=== PATIENT | female | born 2005 | race Two or more races ===

== ENCOUNTER 2024-11-14 07:40 | Inpatient (IN) | payer MEDICAID, SELFPAY ==
[2024-11-14] VITALS (125 sets, daily range): BP systolic 88–172; BP diastolic 50–97; PULSE 58–124; RESP 16–98; TEMP 36.7–37.3; O2SAT 97–100; BMI 22.1
[2024-11-14 08:17] LABS: ROM Kit Lot # 57809118; ROM Swab Mixed By: SAUCT; Rupture of Fetal Membranes Negative (Negative); Swb Mxed in Solvent 1 min? Yes
[2024-11-14 09:24] LABS: Basophils % (Auto) 0 % (0-2.5); Eosinophils # (Auto) 0.1 Thou/mm3 (0.0-0.5); Eosinophils % (Auto) 1 % (0-10); Hematocrit 36.9 % (36.0-46.0); Immature Granulocytes % (Auto) 1 % (0-0); Immature Granulocytes Auto 0.13 Thou/mm3 (0.00-0.00); Lymphocytes # (Auto) 3.1 Thou/mm3 (1.0-4.8); Lymphocytes % (Auto) 22 % (10-50); Mean Corpuscular HGB Conc 35.2 g/dl (31.0-37.0); Mean Corpuscular Hemoglobin 31.5 pg (25.0-35.0); Mean Corpuscular Volume 89 fL (80-100); Monocytes # (Auto) 0.8 Thou/mm3 (0.0-0.8); Monocytes % (Auto) 6 % (0-12); Neutrophils # (Auto) 9.8 Thou/mm3 (1.8-7.7); Neutrophils % (Auto) 70 % (37-80); Nucleated Red Blood Cell % 0 /100 WBC (0); Platelet Count 258 Thou/mm3 (140-440); RDW Standard Deviation 42.5 fL (36.4-46.3); Red Blood Count 4.13 Miln/mm3 (4.00-5.20); White Blood Count 13.9 Thou/mm3 (4.5-11.0)
--- NOTE | 2024-11-14 09:26 | PD.LDHP ---
Documentation for date of: 11/14/24 OB Labor/Induct. HPI History of Present Illness Chief complaint: Painful uterine contractions, possible leaking fluid : 1 Para: 0 History of sections: No History of : No ARMANDO: 11/28/24 Gestational Age (weeks): 38 Gestational Age (days): 0 History of present illness: Patient is a 19-year-old G1, P0 at 38-0/7 weeks who presented to triage this morning reporting possible leaking fluid. She states she was at [facility] yesterday and had a negative AmniSure. Patient's AmniSure was negative today. Her cervical exam on presentation was 3 cm dilated. She was observed in triage for an hour and progressed to 5 cm dilatation. She was admitted in active labor. Unknown group B strep status. We will start antibiotics. History of Present Adequate Care: Yes Obstetrical complications: none Medical complications: none Labs Labs: Unknown: Group Beta Strep Narrative: Unknown group B strep status. We will start antibiotics. Review of Systems Review of Systems Systems Reviewed: All systems reviewed, normal except as documented Narrative Review of Systems: Patient reports regular painful contractions every 3 minutes. She reports leaking fluid. She denies vaginal bleeding. She reports good movement. Past Medical History Surgical History SURGICAL: Negative Section Meds Home Medications and Allergies Home Medications ?Medication ?Instructions ?Recorded ?Confirmed ?Type prenat.vits,yojana,[id number] 1 tab PO QDAY 07/19/24 07/19/24 History vit no.95-ferrous tab PO .1qid 11/14/24 History fumarate 28 mg-folic acid 800 mcg tablet () Allergies Allergy/AdvReac Type Severity Reaction Status Date / Time No Known Allergies Allergy Verified 11/14/24 08:24 OB Exam Physical Exam Vital signs: Temp Pulse Resp BP Pulse Ox 98.8 F 91 18 122/85 H 100 11/14/24 08:08 11/14/24 08:08 11/14/24 08:08 11/14/24 08:08 11/14/24 09:09 Routine Abdominal Exam Abdominal: Present soft Detailed Labor and Delivery Exam Dilation (cm): 5 Effacement (%): 90 Cervix position: mid station: -1 Consistency: soft Presentation: Vertex Membranes: intact Baseline heart rate: 140 monitor accelerations: 15x15 monitor decelerations: None nursing home variability: Moderate (11-25) Contraction frequency (min): 2-3 min Tachysystole: No Contraction intensity: Moderate OB Results Labs 11/14/24 09:10 OB Assessment & Plan Assessment and Plan (1) Active labor at term: Status: Acute Additional Plan Induction method: none Plan: anticipate NVD and GBS prophylaxis tx Additional Plan Comment: Patient appears to be an adequate labor. Will augment labor if her contractions space. Will start ampicillin for group B strep prophylaxis.
[2024-11-14] MEDS: RINGERS LACTATED 1000 ML 1,000 ML 125 ML IV ×3 (09:56→11:40)
[2024-11-14 10:03] LABS: Syphilis Nonreactive (Nonreactive)
[2024-11-14] MEDS: fentaNYL CIT INJ 50 mCg/ML AMP 2ML 100 MCG IV (10:29)
[2024-11-14] MEDS: Ampicillin Inj 2,000 MG in SODIUM CHLORIDE 0.9% (P) 100 ML 200 MG IV (10:44)
[2024-11-14] MEDS: Ampicillin Inj 1,000 MG in SODIUM CHLORIDE 0.9% (P) 50 ML 50 MG IV (14:42)
[2024-11-14] MEDS: OXYTOCIN in NS 20 units 20 UNIT/1,000 ML BAG 125 UNIT IV (15:21)
[2024-11-14] MEDS: BENZO/LANO/ALOE (Dermoplast) 60 GM CAN 1 SPRAY TOP (16:52)
[2024-11-14 17:18] LABS: Amphetamine/Metham Scrn,Ur OB Negative (Negative); Benzoylecgonine Screen, Ur OB Negative (Negative); Opiate Screen,Urine OB Negative (Negative); THC Screen,Urine OB Negative (Negative)
--- NOTE | 2024-11-14 17:47 | ESHP_ITS ---
Documentation for date of: 11/14/24 OB Labor/Induct. HPI History of Present Illness Chief complaint: Labor, 38 weeks : 1 Para: 0 History of sections: No History of : No ARMANDO: 11/28/24 Gestational Age (weeks): 38 Gestational Age (days): 0 History of present illness: Patient is a 19-year-old G1, P0 at 38-0/7 weeks who presented to triage this morning reporting possible leaking fluid. She states she was at [facility] yesterday and had a negative AmniSure. Patient's AmniSure was negative today. Her cervical exam on presentation was 3 cm dilated. She was observed in triage for an hour and progressed to 5 cm dilatation. She was admitted in active labor. Unknown group B strep status. We will start antibiotics. History of Present Dating criteria: LMP confirmed by 2nd trimester US Adequate Care: Yes Obstetrical complications: none Medical complications: none Labs Labs: Negative: Hepatitis B, HIV, Chlamydia and Gonorrhea and Unknown: Group Beta Strep Review of Systems Review of Systems Systems Reviewed: All systems reviewed, normal except as documented Narrative Review of Systems: Patient reported regular painful contraction contractions. She denied heavy vaginal bleeding she reported possible leaking fluid on admission however her AmniSure test was negative. Past Medical History Surgical History SURGICAL: Negative Section Meds Home Medications and Allergies Home Medications ?Medication ?Instructions ?Recorded ?Confirmed ?Type prenat.vits,yojana,ryx-qcqp-xkjkj 1 tab PO QDAY 07/19/24 11/14/24 History Allergies Allergy/AdvReac Type Severity Reaction Status Date / Time No Known Allergies Allergy Verified 11/14/24 08:24 OB Exam Physical Exam Vital signs: Temp Pulse Resp BP Pulse Ox 98.4 F 78 16 130/67 97 11/14/24 14:00 11/14/24 17:14 11/14/24 14:00 11/14/24 17:14 11/14/24 15:12 Routine Abdominal Exam Abdominal: Present soft Detailed Labor and Delivery Exam Dilation (cm): 5 Effacement (%): 90 Cervix position: mid station: -1 Consistency: medium Presentation: Vertex Membranes: intact monitor accelerations: 15x15 monitor decelerations: None director long term care variability: Moderate (11-25) Contraction intensity: Moderate OB Results Labs 11/14/24 09:10 Labs: Short CBC 11/14/24 Range/Units 09:10 WBC 13.9 H (4.5-11.0) Thou/mm3 Hgb 13.0 (12.0-16.0) g/dL Hct 36.9 (36.0-46.0) % Plt Count 258 (140-440) Thou/mm3 OB Assessment & Plan Assessment and Plan (1) Active labor at term: Status: Acute Additional Plan Plan: anticipate NVD and GBS prophylaxis tx Additional Plan Comment: Admit patient. Ampicillin for group B strep unknown. Okay for epidural. Anticipate .
--- NOTE | 2024-11-14 17:53 | PD.LDDS ---
DS: Providers Provider Date of admission: 11/14/24 09:02 Primary care physician: Physician No Primary/Family Admitting Provider: Clara Galan MD Attending Provider on Admission: Clara Galan MD Consults: 11/14/24 16:15 Referral Routine Comment: Attending Provider on DC: Clara Galan MD Discharging Provider: Clara Galan MD Summary/Hosp Course Brief History: Patient is a 19-year-old G1, P0 at 38-0/7 weeks who presented to triage this morning reporting possible leaking fluid. She states she was at [facility] yesterday and had a negative AmniSure. Patient's AmniSure was negative today. Her cervical exam on presentation was 3 cm dilated. She was observed in triage for an hour and progressed to 5 cm dilatation. She was admitted in active labor. Unknown group B strep status. We will start antibiotics. Time Spent with Patient Time attestation: Total time spent providing and/or coordinating discharge services: Exam Vital Signs Temp Pulse Resp BP Pulse Ox 98.4 F 78 16 130/67 97 11/14/24 14:00 11/14/24 17:14 11/14/24 14:00 11/14/24 17:14 11/14/24 15:12 Discharge Plan Prescriptions/Referrals Prescriptions/Med Rec: No Action Vitamin Tablet 1 tab PO QDAY Referrals: No Primary/Family,Physician [Primary Care Provider] - Patient/Caregiver Discharge Instructions Print Language: Panamanian Planned Discharge Date 11/14/24
--- NOTE | 2024-11-14 17:54 | OBDSUM_ITS ---
Data ([facility]) Data Hx Section: No : 1 Term: 0 : 0 : 0 Delivery Data ([facility]) Labor Data Stimulated/Augmented: No Induction: No Rupture Type: SROM Amniotic Fluid: Clear Delivery Data EDC: 11/28/24 EDC calculated by:: LMP/early US confirmation Delivery Date: 11/14/24 Delivery Time: 15:12 Gestational age (weeks): 38 Gestational age (days): 0 Delivered by: Clara Galan Bisque Ware Dipper at delivery: Yes (Dr Calhoun) Support person(s) at delivery: Mother of pt, FOB Delivery Method Delivery: Vaginal Delivery Type: Spontaneous Presentation: Vertex Position: OA Anesthesia Type Primary Anesthesia: Epidural Secondary Anesthesia: None Placenta Placenta Delivery: Spontaneous Placenta Cultures Obtained: No Placenta Sent for Examination: No Episiotomy Episiotomy: None Lacerations #2: Perineal: 1st degree Periurethral: First degree Perineal repair Sutures used for repair: 3.0 Chromic and other (2-0 chromic) EBL Estimated blood loss (ml): 150 Umbilical Cord Placenta/Cord Complication: Velamentous Insertion and Other (Short cord) Umbilical Vessels: 3 Nuchal Cord: None (Short cord) Body Cord: None Additional Procedures Patient is a 19-year-old G1, P0 who presented 5 cm in active labor. She went on to progress to complete and pushed 17 minutes delivering a liveborn female at 1512. Findings: liveborn female in the DEANNA presentation with no nuchal cord, no meconium. The baby did have a short cord .Apgars were 9 and 9 weight was 2870 g or 6 pounds 5 ounces. The placenta was complete spontaneous grossly normal delivering approximately 3 minutes after the baby. The patient sustained a left first-degree periurethral laceration and a first-degree perineal laceration in a U-shape repaired in a standard fashion using 2-0 and 4-0 chromic. Complications were none. Condition both mom and infant were in stable condition in the delivery room. Complications Complications: None [place] Data ([facility]) [place] Data Infant Gender: Female Infant Weight Grams: 2870
[2024-11-14] MEDS: HYDROcodone/APAP 5/325 TABLET 1 TAB PO (19:49)
[2024-11-14 22:54] LABS: Basophils % (Auto) 0 % (0-2.5); Eosinophils % (Auto) 0 % (0-10); Hemoglobin 10.5 g/dL (12.0-16.0); Immature Granulocytes % (Auto) 1 % (0-0); Immature Granulocytes Auto 0.09 Thou/mm3 (0.00-0.00); Lymphocytes # (Auto) 1.9 Thou/mm3 (1.0-4.8); Lymphocytes % (Auto) 10 % (10-50); Mean Corpuscular Hemoglobin 31.3 pg (25.0-35.0); Mean Corpuscular Volume 90 fL (80-100); Monocytes % (Auto) 5 % (0-12); Neutrophils # (Auto) 16.2 Thou/mm3 (1.8-7.7); Neutrophils % (Auto) 84 % (37-80); Nucleated Red Blood Cell % 0 /100 WBC (0); Platelet Count 208 Thou/mm3 (140-440); RDW Standard Deviation 42.9 fL (36.4-46.3); Red Blood Count 3.35 Miln/mm3 (4.00-5.20); White Blood Count 19.2 Thou/mm3 (4.5-11.0)
[2024-11-15] MEDS: IBUPROFEN TAB 400 MG TABLET 800 MG PO (08:31)
--- NOTE | 2024-11-15 08:46 | PD.LDPPPRG ---
Subjective Subjective Interval history: Patient is a 19-year-old -0-0-1 status post vaginal delivery 11/14/2024. Patient is doing quite well she is resting comfortably and breast-feeding. She is to reports mild cramping pain relieved by ibuprofen. She denies any heavy vaginal bleeding she reports some perineal pain. Exam Vital Signs Temp Pulse Resp BP Pulse Ox O2 Del Method 98.8 F 82 16 109/67 98 Room Air 11/14/24 23:50 11/14/24 23:50 11/14/24 23:50 11/14/24 23:50 11/14/24 23:50 11/14/24 23:50 Constitutional Constitutional: no acute distress Comments: Patient is alert and oriented. Resting comfortably in bed. Breast-feeding well. Routine Abdominal Exam Abdominal: Present soft Comments: Fundus firm nontender. Routine Extremities Exam Comments: No significant pedal edema Objective Labs 11/14/24 22:37 Labs: Laboratory Results - last 24 hr 11/14/24 11/14/24 11/14/24 09:10 12:00 22:37 WBC 13.9 H 19.2 H D RBC 4.13 3.35 L Hgb 13.0 10.5 L D Hct 36.9 30.0 L MCV 89 90 MCH 31.5 31.3 MCHC 35.2 35.0 RDW Std Deviation 42.5 42.9 Plt Count 258 208 D Neut % (Auto) 70 84 H Lymph % (Auto) 22 10 [place] % (Auto) 6 5 Eos % (Auto) 1 0 Baso % (Auto) 0 0 Neut # (Auto) 9.8 H 16.2 H Lymph # (Auto) 3.1 1.9 [place] # (Auto) 0.8 1.0 H Eos # (Auto) 0.1 0.0 Baso # (Auto) 0.0 0.0 Immature Gran # (Auto) 0.13 H 0.09 H Absolute Nucleated RBC 0.00 0.00 Immature Gran % 1 H 1 H Nucleated RBC % 0 0 Urine Opiates Screen Negative U Amphetamin/Meth Scrn Negative U Cocaine Metab Screen Negative U Marijuana (THC) Screen Negative Syphilis Serology Nonreactive Blood Type B Positive Antibody Screen NEGATIVE Blood Bank Wristband ID Yes Assessment & Plan Problem List (1) Active labor at term: Status: Acute Assessment and plan: day #1 status post normal spontaneous vaginal delivery. Patient is doing very well. Continue routine care. Plan Comment Plan Comment: Probable discharge later this afternoon. Time Spent With Patient Time: Total time spent is greater than 50% in coordination of care (as documented) at patient's floor/unit and/or counseling patient:
[2024-11-15 09:08] VITALS: BP 110/73; PULSE 73; RESP 16; TEMP 36.7; O2SAT 98
--- NOTE | 2024-11-15 10:13 | PC.SS ---
Update: SS conducted bedside contact with the patient to address nursing referral indicating that patient was late to care at 16 weeks.? SS introduced self and role.? FOB at bedside, Nate. ?SS asked for permission to speak in front of FOB. Patient was agreeable.? FOB involved. Patient resides at home with her mother. D/c address:? [address], [place]. Patient confirmed late to care due to residing in [place], [place] at the time. Patient then moved to this location and had difficulty scheduling new appointment with [facility]. [facility] provided OB services.? This is patient?s first baby. ?Patient delivered, baby girl, Amy, natural. Patient states she plans on combo feeding, breast and bottle. Patient confirmed no history of drug/alcohol, DV or mental health history.? Patient is aligned with WIC and FS.? No TANF. Patient has access to a car seat.? Patient has access to appropriate supplies and equipment. ?No further intervention required at this time. Cream Buyer will be available to address any further concerns. SS updated bedside nurse.
--- NOTE | 2024-11-15 12:42 | ESDS_ITS ---
DS: Providers Provider Date of admission: 11/14/24 09:02 Primary care physician: Physician No Primary/Family Admitting Provider: Clara Galan MD Attending Provider on Admission: Clara Galan MD Consults: 11/14/24 16:15 Referral Routine Comment: Attending Provider on DC: Clara Galan MD Discharging Provider: Clara Galan MD Anticipated date of discharge: 11/15/24 DS: Diagnosis Discharge Diagnosis (1) Active labor at term: Status: Acute (2) Term delivered: Status: Acute Problem List Completed Was Problem List Reviewed/Reconciled?: Yes Summary/Hosp Course Brief History: Patient is a 19-year-old G1, P0 at 38-0/7 weeks who presented to triage this morning reporting possible leaking fluid. She states she was at [facility] yesterday and had a negative AmniSure. Patient's AmniSure was negative today. Her cervical exam on presentation was 3 cm dilated. She was observed in triage for an hour and progressed to 5 cm dilatation. She was admitted in active labor. Unknown group B strep status. We will start antibiotics. Peripartum Data Delivery Method: Normal Vaginal Delivery Episiotomy Description: None Laceration Description: yes and see Delivery Summary Procedures: First-degree left periurethral laceration and first-degree perineal lacerations repaired in a standard fashion complications: none Status at Discharge Functional status at discharge: independent ambulation Overall status at discharge: patient is progressing back to baseline Time Spent with Patient Time attestation: Total time spent providing and/or coordinating discharge services: Time spent: Less than 30 minutes Specific discharge activities: Pelvic rest x 6 weeks. No intercourse tampons or douching for 6 weeks. No bathtubs x 6 weeks. Wash perineal area with soap and water once a day. Call with heavy vaginal bleeding, fevers of 100.4 ?F or higher, or severe depression. Follow-up in OB clinic in 6 weeks. Exam Vital Signs Temp Pulse Resp BP Pulse Ox O2 Del Method 98.0 F 73 16 110/73 98 Room Air 11/15/24 09:08 11/15/24 09:08 11/15/24 09:08 11/15/24 09:08 11/15/24 09:08 11/15/24 09:08 Narrative Exam Patient is alert and oriented x 3 in no apparent distress breast-feeding well. Routine Abdominal Exam Abdominal: Present soft Comments: Fundus firm nontender Discharge Plan Plan Patient Disposition: HOME (Self Care) Disposition Comment: Stable Prescriptions/Referrals Prescriptions/Med Rec: No Action Vitamin Tablet 1 tab PO QDAY Referrals: No Primary/Family,Physician [Primary Care Provider] - Patient/Caregiver Discharge Instructions Discharge Activity: activity as tolerated Other Discharge Activity Instructions:: Please follow up with your OB Doctor in 6 weeks call and make your appointment today. Pelvic rest x 6 weeks. Other Discharge Diet Instructions: General diet, drink a lots of water. Continue vitamins. Education Materials: After a Vaginal , : Caring for Yourself, Feel Healthy After Print Language: Welsh Stand Alone Forms: Marah Award Info., Patient Portal Info Letter Discharge Order Discharge Orders: Discharge (Routine); Ordered 11/15/24 Ordered By: Clara Galan Planned Discharge Date 11/15/24
[2024-11-15 15:52] VITALS: BP 107/68; PULSE 76; RESP 16; TEMP 36.9; O2SAT 98
== END 2024-11-15 16:44 | disposition home or self-care (01) | DRG 560 ==
LOC: S4SX 15:17 → S4NX 18:31
PROVIDERS: Admitting Provider Obstetrics & Gynecology; Visit Provider Obstetrics & Gynecology
DX: O69.3XX0 Labor and delivery complicated by short cord, not applicable or unspecified (principal); O70.0 First degree perineal laceration during delivery; Z37.0 Single live birth; Z3A.38 38 weeks gestation of pregnancy
CPT/HCPCS: 36415; 80307; 84112; 85025; 86780; 86850; 86900; 86901; 94762; J0290; J2590; J2795; J3010; J7050; J7120; A9270